=== PATIENT | female | born 1930 | race Caucasian/White ===

== ENCOUNTER 2018-10-28 09:43 | Emergency (ER) | payer MEDICARE, OTHER ==
[~2018-10-28] VITALS: Ht 157.5 cm; Wt 55.3 kg
[2018-10-28] MEDS ORDERED: REMICADE100 MG/10 IV (10:26)
[2018-10-28] MEDS ORDERED: DILTIAZEM 24HR240 MG PO (11:00)
[2018-10-28] MEDS ORDERED: METOPROLOL SUCC25 MG PO (11:00)
[2018-10-28] MEDS ORDERED: FOLIC ACID0.4 MG PO (11:00)
[2018-10-28] MEDS ORDERED: OXYBUTYNIN CHLOR5 M1 (11:01)
[2018-10-28] MEDS ORDERED: COUMADIN5 MG PO (11:01)
[2018-10-28] MEDS ORDERED: PRAVACHOL40 MG PO (11:01)
[2018-10-28] MEDS ORDERED: OMEPRAZOLE20 MG PO (11:01)
[2018-10-28] MEDS ORDERED: PREDNISONE20 MG PO (11:02)
[2018-10-28] MEDS ORDERED: MUPIROCIN22 GM TOP (11:02)
[2018-10-28] MEDS ORDERED: NORCO 5-325 TA1 EACH PO (11:03)
[2018-10-28] MEDS ORDERED: CALCIUM500 M1 PO (11:03)
[2018-10-28] MEDS ORDERED: VITAMIN D400 UNIT PO (11:03)
[2018-10-28] MEDS ORDERED: TYLENOL EXTRA500 MG PO (11:04)
[2018-10-28] MEDS ORDERED: ASPIRIN81 MG PO (11:04)
--- OUTSIDE RECORDS SUMMARY | 2018-10-28 15:02 | XMS ---
PreManage Notification: Isiah SAEED Security Quick Technician Events No recent Security Events currently on file CRITERIA MET - [place] [facility] - 2 Visits in 30 Days CARE PROVIDERS There are no care providers on record at this time. Milagros has no Care Guidelines for this patient. Dick VISIT COUNT (12 [address] [facility] [facility] TOTAL 3 NOTE: Visits indicate total known visits. ED/C VISIT TRACKING (12 MO.) 10/28/2018 09:43 [facility] [place] TYPE: Emergency COMPLAINT: - FALL 10/14/2018 08:12 [facility] DIAGNOSES: 0. SOB 09/08/2018 11:36 [facility] TYPE: Emergency DIAGNOSES: 0. IRREGULAR HEART RATE INPATIENT VISIT TRACKING (12 MO.) 10/15/2018 12:06 [facility] TYPE: Internal Medicine DIAGNOSES: 0. AFIB [email or web address]
--- NOTE | 2018-10-28 23:20 | EKG ---
[facility] [address] [facility] [place], [place] [address] Signed Atrial fibrillation with rapid ventricular response ST \T\ T wave abnormality, consider lateral ischemia Abnormal ECG No previous ECGs available Confirmed by DELVIS FALL DO ([id number]) on 10/28/2018 11:19:58 PM Electronically Signed By: DELVIS FALL DO 10/28/18 2320 PATIENT NAME: ANDREW SAEED TA Electrocardiogram DATE OF : 32 PHYSICIAN: DELVIS FALL DO REPORT #: [id number] REPORT IS CONFIDENTIAL AND NOT TO BE RELEASED WITHOUT AUTHORIZATION
== END 2018-10-28 14:49 | disposition home or self-care (01) ==
LOC: ED 09:43
DX: S01.01XA Laceration without foreign body of scalp, initial encounter (principal); S01.81XA Laceration without foreign body of other part of head, initial encounter; I48.91 Unspecified atrial fibrillation; J81.1 Chronic pulmonary edema; W19.XXXA Unspecified fall, initial encounter
CPT/HCPCS: 70450; 71045; 80053; 83880; 84484; 85025; 85610; 93005; 93010; 96361; 96374; 96375; 96376; 99285-25; J1940; J7040